=== PATIENT | male | born 1975 | race Caucasian/White ===

== ENCOUNTER → 2024-07-06 | Day surgery (SDC) | payer BC ==
[2024-07-02 11:26] LABS: BASOPHILS % 0.9 % (0.0-1.0); EOSINOPHILS # (AUTO) 0.5 (0.0-0.4); HEMATOCRIT 50.2 % (38.2-49.6); HEMOGLOBIN 15.9 g/dL (14.0-18.0); LYMPHOCYTES # (AUTO) 1.5 (1.0-3.2); LYMPHOCYTES % 33.6 % (18.0-39.1); MEAN CORPUSCULAR HEMOGLOBIN 31.1 pg (28-32); MEAN CORPUSCULAR HGB CONC 31.7 g/dL (31-35); MEAN CORPUSCULAR VOLUME 98.2 fL (81-99); MONOCYTES # (AUTO) 0.5 (0.2-0.8); MONOCYTES % 10.8 % (4.4-11.3); NEUTROPHILS # (AUTO) 1.9 (2.1-6.9); NEUTROPHILS % 42.7 % (38.7-80.0); PLATELET COUNT 165 x10e3/uL (140-360); RED BLOOD COUNT 5.11 x10e6/uL (4.3-5.7); RED CELL DISTRIBUTION WIDTH 11.7 % (11.7-14.4); WHITE BLOOD COUNT 4.34 x10e3/uL (4.8-10.8)
[2024-07-02 11:58] LABS: ANION GAP 16.3 mmol/L (8-16); CALCIUM 10.2 mg/dL (8.4-10.2); CREATININE, SERUM 1.14 mg/dL (0.72-1.25)
[2024-07-02 12:01] LABS: POTASSIUM 5.3 mmol/L (3.5-5.1)
[~2024-07-06] MED LIST: ACETAMINOPHEN 1000 MG/100 ML 100 ML IV ONE; AJOVY225 MG/1.5 IM; ARIMIDEX1 MG PO; BELBUCA600 MCG TP; CONCERTA36 MG PO; DEXAMETHASONE SOD PHOS INJ 4 MG/ML SDV ONE; ENBREL50 MG/1 ML IM; EPHEDRINE SULFATE INJ 50 MG/ML VIAL ONE; ERYTHROMYCIN250 MG PO; FAMOTIDINE 20 MG/2 ML VIAL IV ONE; FENTANYL CITRATE/PF 100MCG/2 ML INJ ONE; GLYCOPYRROLATE INJ 0.2 MG/ML VIAL ONE; HYDROXYZIN10 MG/5 ML PO; LAMOTRIGINE (O1 EACH; LAMOTRIGINE ER200 MG PO; LEVOCETIRIZINE D5 MG PO; LIDOCAINE HCL 2% LOCAL INJ 5 ML SDV VIAL INJ ONE; MEDROL4 MG PO; MELOXICAM7.5 MG PO; METOCLOPRAMIDE HCL 10 MG/2ML VIAL ONE; METOPROLOL SUCC25 MG PO; MIDAZOLAM HCL 2 MG/2 ML VIAL ONE; MYSOLINE50 MG PO; NEURONTIN300 MG PO; NORTRIPTYLINE H10 MG PO; ONDANSETRON HCL INJ 2MG/ML 2ML 2 MG/ML VIAL ONE; ORPHENADRINE C100 MG PO; PHENYLEPHRINE HCL 1% 10 MG/ML VIAL ONE; PROPOFOL IV EMULSION 10 MG/ML 20 ML VIAL ONE; SEVOFLURANE INHAL SOLN 250 ML PEN BTL ONE; SULFASALAZINE500 MG PO; SYNTHROID125 MCG PO; TADALAFIL5 MG PO; TRAZODONE HCL100 MG PO; VITAMIN D3125 MCG PO; XYOSTED100 MG/0.5
[2024-07-06] MEDS: LACTATED RINGER'S 1,000 ML ONE (06:08)
[2024-07-06] MEDS: CEFAZOLIN SODIUM 2 GM ONE (06:08)
[2024-07-06 10:20] VITALS: BP 129/66; PULSE 78; RESP 16; O2SAT 99
== END | disposition home or self-care (01) ==
LOC: OR 05:30
PROVIDERS: ATTEND Podiatrist Foot Surgery
DX: M19.271 Secondary osteoarthritis, right ankle and foot (principal); M06.9 Rheumatoid arthritis, unspecified; G47.33 Obstructive sleep apnea (adult) (pediatric); I10 Essential (primary) hypertension; E66.01 Morbid (severe) obesity due to excess calories; E03.9 Hypothyroidism, unspecified; F90.9 Attention-deficit hyperactivity disorder, unspecified type; F32.A Depression, unspecified; F17.290 Nicotine dependence, other tobacco product, uncomplicated; Z88.8 Allergy status to other drugs, medicaments and biological substances; Z01.810 Encounter for preprocedural cardiovascular examination; Z01.812 Encounter for preprocedural laboratory examination; Z01.818 Encounter for other preprocedural examination; Z79.1 Long term (current) use of non-steroidal anti-inflammatories (NSAID); Z79.899 Other long term (current) drug therapy
CPT/HCPCS: 28750; 36415; 71046; 76000; 80048; 85025; 93005; C1713 ×6; C1734; J0131; J1100; J2003; J2250; J2371; J2405; J2704; J2765; J3010; J7121